=== PATIENT | female | born 1975 | race Two or more races ===

== ENCOUNTER 2019-03-31 16:05 | Inpatient (IN) | payer OTHER, MEDICAID ==
[~2019-03-31] VITALS: Ht 154.9 cm; Wt 112.5 kg
[2019-03-31] MEDS ORDERED: ACETAMINOPHEN 325MG TABLET PO PRN (16:45)
[2019-03-31 17:33] LABS: HEMATOCRIT. 37.3 % (36.0-48.0); HEMOGLOBIN. 12.4 g/dL (12.0-16.0); MEAN CORPUSCULAR HEMOGLOBIN 28.1 pg (28.0-32.0); MEAN CORPUSCULAR VOLUME 84.3 fL (81.0-99.0); MEAN PLATELET VOLUME 8.7 fl (7.4-10.4); MONOCYTES % 5.8 % (2.0-8.0); NEUTROPHILS % 64.2 % (40.0-76.0); PLATELET 328 x1000/uL (130-400); RED BLOOD CELL COUNT 4.42 mill/uL (4.2-5.4); RED CELL DISTRIBUTION WIDTH 14.6 % (11.6-14.6)
[2019-03-31] MEDS ORDERED: MORPHINE SULFATE 4 MG/ML CPJ (NOT FOR IM USE) IV STA (18:50)
[2019-03-31] MEDS ORDERED: SODIUM CHLORIDE 0.9% 1,000 ML IV ONE (18:50)
[2019-03-31] MEDS ORDERED: ONDANSETRON HCL 4MG/2ML INJ IV STA (18:50)
[2019-03-31] MEDS ORDERED: RHO(D) IMMUNE GLOBULIN 300 MCG/SYR IM ONE (19:00)
[2019-04-01 02:58] VITALS: BP 114/63
[2019-04-01 07:52] VITALS: BP 114/63
[2019-04-01 08:00] VITALS: BP 131/52
== END 2019-04-01 10:30 | disposition home or self-care (01) | DRG 541 ==
LOC: ER 16:05 → 6EST 18:51 → ENRESERV 20:09
PROVIDERS: ADMIT Obstetrics & Gynecology; ATTEND Obstetrics & Gynecology
PROC: 10D17ZZ Extraction of Products of Conception, Retained, Via Natural or Artificial Opening (ICD-10-PCS; principal; 2019-04-01)
DX: O03.30 Unspecified complication following incomplete spontaneous abortion (principal); Z37.1 Single stillbirth; O24.911 Unspecified diabetes mellitus in pregnancy, first trimester; O36.4XX0 Maternal care for intrauterine death, not applicable or unspecified; Z3A.01 Less than 8 weeks gestation of pregnancy
CPT/HCPCS: 36415; 76801; 82962; 84702; 86850; 86870; 86900; 99285; J2270; J2405; J7030